=== PATIENT | male | born 1945 | race Caucasian/White ===

== ENCOUNTER 2017-03-27 12:01 | Emergency (ER) | payer MEDICARE ==
[2017-03-27 12:32] VITALS: BMI 23.6
[2017-03-27] MEDS ORDERED: Sodium Chloride 0.9% 500 ML IV ONE ×2 (13:04→13:15)
--- NOTE | 2017-03-27 13:07 | C.PDOC ---
History Of Present Illness 71 yo male, hx of etoh abuse, presents with blood in stool x 1 week. multiple episodes, no hememesis, no vomiting no pain. Time Seen by Provider: 03/27/17 12:57 Chief Complaint (Nursing): GI Problem Past Medical History Reviewed: Historical Data, Nursing Documentation, Vital Signs Vital Signs: Last Vital Signs Temp 98.3 F 03/27/17 14:55 Pulse 74 03/27/17 14:55 Resp 20 03/27/17 14:55 BP 128/81 03/27/17 14:55 Pulse Ox 99 03/27/17 17:30 - Medical History PMH: Denies: HIV, HTN, Seizures, Sexually Transmitted Disease Family History: States: Unknown Family Hx - Social History Hx Alcohol Use: Yes Hx Substance Use: No - Immunization History Hx Tetanus Toxoid Vaccination: No Hx Influenza Vaccination: No Hx Pneumococcal Vaccination: No Review Of Systems Except As Marked, All Systems Reviewed And Found Negative. Gastrointestinal: Positive for: Hematochezia Physical Exam - Physical Exam Appears: Well, No Acute Distress Skin: Normal Color, Warm, Dry Eye(s): bilateral: Normal Inspection, PERRL, EOMI Nose: Normal Throat: Normal Neck: Normal Cardiovascular: Rhythm Regular Respiratory: Normal Breath Sounds Gastrointestinal/Abdominal: Normal Exam, Soft, No Tenderness, No Guarding, No Rebound Back: Normal Inspection Extremity: Normal ROM ED Course And Treatment - Laboratory Results Result Diagrams: 03/27/17 13:37 03/27/17 14:14 O2 Sat by Pulse Oximetry: 99 Medical Decision Making Medical Decision Making: lower gi bleed - labs, ivf, reassess. 233: pt reassesed, guiac neg however no stool in vault. pt reports "heavy bleeding this am" and "Every day for 1 week" requested admission for gi eval. pt declines and prefers to return with worsening symptoms h/h stable vitals stable. no external hemorrhoids. Disposition - Disposition Referrals: Venu Ward MD [Staff Provider] - Disposition: AGAINST MEDICAL ADVICE Disposition Time: 14:34 Condition: UNKNOWN Additional Instructions: return to er with worsening symptoms or concerns. you are declining observation in the hospital you are able to return to er with worsening symptoms or concerns. Instructions: Gastrointestinal Bleeding (ED), Rectal Bleeding (GEN) Forms: [facility] (Azeri) - Clinical Impression Clinical Impression: Gastrointestinal hemorrhage
[2017-03-27 13:45] LABS: BASO # 0.1 K/uL (0.0-0.2); BASO % 0.9 % (0.0-2.0); EOS # 0.1 K/uL (0.0-0.7); EOS % 1.3 % (0.0-4.0); HEMOGLOBIN 15.6 g/dL (12.0-18.0); LYMPH # 1.7 K/uL (1.0-4.3); LYMPH % 26.4 % (20.0-40.0); MEAN CELL VOLUME 91.8 fL (80.0-94.0); MEAN CORPUSCULAR HGB CONC 33.7 g/dL (33.0-37.0); MEAN PLATELET VOLUME 7.7 fL (7.2-11.7); MONO # 0.5 K/uL (0.0-0.8); MONO % 7.4 % (0.0-10.0); RBC 5.02 Mil/uL (4.40-5.90); RED CELL DISTRIBUTION WIDTH 12.4 % (11.5-14.5); WHITE BLOOD COUNT 6.3 K/uL (4.8-10.8)
[2017-03-27 14:08] LABS: URINE BILIRUBIN NEGATIVE (NEGATIVE); URINE BLOOD NEGATIVE (NEGATIVE); URINE CLARITY Clear (Clear); URINE COLOR Straw (YELLOW); URINE GLUCOSE (UA) NORMAL (Normal); URINE LEUKOCYTE ESTERASE NEG Leu/uL (Negative); URINE NITRATE NEGATIVE (NEGATIVE); URINE PROTEIN NEGATIVE (NEGATIVE); URINE UROBILINOGEN NORMAL mg/dL (0.2-1.0)
[2017-03-27 14:30] LABS: ALB/GLOB RATIO 1.3 (1.0-2.1); ALBUMIN 4.2 g/dL (3.5-5.0); ALT/SGPT 44 U/L (21-72); AST/SGOT 29 U/L (17-59); BLOOD UREA NITROGEN 8 mg/dL (9-20); GFR AFRICAN-AMERICAN > 60; GFR NON-AFRICAN AMERICAN > 60; LIPASE 64 U/L (23-300)
[2017-03-27 14:56] VITALS: BP 128/81; PULSE 74; RESP 20; TEMP 98.3
[2017-03-27 17:30] VITALS: O2SAT 99
== END 2017-03-27 14:55 | disposition left against medical advice (07) ==
LOC: C.ER 12:01
DX: K92.2 Gastrointestinal hemorrhage, unspecified (principal)
CPT/HCPCS: 80053; 81001; 83690; 85025; 99283; G0328; J7040